=== PATIENT | female | born 1930 | race Caucasian/White ===

== ENCOUNTER 2017-07-31 16:19 | Observation (INO) | payer OTHER, BC ==
[~2017-07-31] VITALS: Ht 165.1 cm; Wt 51.6 kg
[~2017-07-31 16:19] MED LIST: ACETIC ACID 2% BOTH EARS; AMLODIPINE BESYL5 MG PO; ANTIVERT25 MG PO; APRESOLINE25 MG PO; ATROVENT 0.03%30 ML BOTH NARES; ATROVENT 0.06%15 ML BOTH NARES; CALCIUM 600 +1 EAC5 PO; CALCIUM PO; CARBAMAZEPINE200 MG PO; CARVEDILOL12.5 MG PO; CARVEDILOL6.25 MG PO; CEFTIN500 MG PO; CHILD ASPIRIN81 M1 PO; CIPRO500 MG PO; CLOPIDOGREL75 MG PO; COREG12.5 M1 PO; COREG25 MG PO; ELIQUIS5 MG PO; ENDOCET 5-3251 EACH PO; FLONASE16 G1 BOTH NARES; FLUCONAZOLE100 MG PO; GLIPIZIDE5 MG PO; HYDROCHLOROTHIA25 MG PO; IPRATROPIUM BRO15 ML BOTH NARES; ISOSORBIDE DINI30 MG PO; ISOSORBIDE MONO30 MG PO; KEFLEX500 MG PO; LEVOTHYROXINE100 MCG PO; LIPITOR40 MG PO; LIPITOR80 MG PO; LISINOPRIL10 MG PO; LYRICA50 MG PO; LYRICA75 MG PO; METFORMIN HCL500 MG PO; MOTRIN800 MG PO; Macrodantin PO; NAPROSYN375 MG PO; NITROGLYCERIN0.4 MG SL; NITROSTAT0.4 MG SL; NORVASC5 MG PO; OMEPRAZOLE40 M1 PO; PLAVIX75 MG PO; RANEXA500 MG PO; SIMVASTATIN80 MG PO; SYNTHROID100 MCG PO; SYNTHROID150 MCG PO; TYLENOL REGULA325 MG PO; ULTRAM50 MG PO; ZANTAC150 MG PO; ZESTRIL,PRINIVI20 MG PO; ZESTRIL10 MG PO; ZESTRIL40 MG PO; ZOCOR80 MG PO; ZOFRAN ODT4 MG PO; ZOFRAN4 MG PO; [UNRECOGNIZED DRUG - OTHER] PR
[2017-07-31 16:55] LABS: HEMATOCRIT 41.7 % (36.0-46.0); MCH 31.6 PG (29.0-34.0); MCHC 33.3 G/DL (30.0-36.0); MCV 94.8 FL (83-99); MEAN PLAT.VOLUME 10.7 uM^3 (9.5-12.4); PLATELET COUNT 149 K/uL (156-360); RBC DIS.WIDTH-SD 45.4 % (39-53); WHITE BLOOD COUNT 5.5 K/uL (4.1-10.2)
[2017-07-31 17:07] LABS: CHLORIDE 104 mEq/L (99-109); POTASSIUM 3.2 mEq/L (3.7-5.4); SODIUM 142 mEq/L (136-147)
[2017-07-31 17:08] LABS: GLUCOSE 257 mg/dL (70-99)
[2017-07-31 17:10] LABS: ANION GAP 11 MEQ/L (2-14)
[2017-07-31 17:12] LABS: GFR ESTIMATE (CALCULATED) > 59 mL/min/
[2017-07-31 17:13] LABS: UREA NITROGEN (BUN) 11 mg/dL (9-23)
[2017-07-31 17:16] LABS: TROP-I INTERPRETATION NEGATIVE; TROPONIN-I < 0.01 ng/mL (0.0-0.30)
[2017-07-31] MEDS ORDERED: ANTIVERT12.5 MG PO (20:12)
[2017-07-31] MEDS ORDERED: LIPITOR40 MG PO (20:12)
[2017-07-31] MEDS ORDERED: CELEXA10 MG PO (20:13)
[2017-07-31 20:56] VITALS: BP 170/76
[2017-07-31 21:34] LABS: INTER. NORMALIZED RATIO 1.1; PROTHROMBIN TIME 12.6 SEC (10.2-12.9)
[2017-07-31 21:37] LABS: PTT 25.7 SEC (25-37)
[2017-08-01 00:21] VITALS: BP 168/77
[2017-08-01 01:08] LABS: TROP-I INTERPRETATION NEGATIVE; TROPONIN-I < 0.01 ng/mL (0.0-0.30)
[2017-08-01 04:52] VITALS: BP 166/77
[2017-08-01 05:36] LABS: HEMATOCRIT 42.1 % (36.0-46.0); MCH 32.4 PG (29.0-34.0); MCV 95.5 FL (83-99); MEAN PLAT.VOLUME 11.3 uM^3 (9.5-12.4); PLATELET COUNT 126 K/uL (156-360); RBC DIS.WIDTH-CV 13.1 % (11.8-14.6); RBC DIS.WIDTH-SD 46.5 % (39-53); RED BLOOD COUNT 4.41 M/uL (3.80-5.20); WHITE BLOOD COUNT 4.2 K/uL (4.1-10.2)
[2017-08-01 06:03] LABS: ANION GAP 9 MEQ/L (2-14); CHLORIDE 105 MEQ/L (99-109); GFR ESTIMATE (CALCULATED) > 59 mL/min/; GLUCOSE 167 mg/dL (70-99); POTASSIUM 3.2 MEQ/L (3.7-5.4); SAMPLE HEMOLYSIS CHECK 0; SAMPLE ICTERIC CHECK 0; SAMPLE LIPEMIA CHECK 0; SODIUM 143 MEQ/L (136-147); UREA NITROGEN (BUN) 9 mg/dL (9-23)
[2017-08-01 06:04] LABS: TROP-I INTERPRETATION NEGATIVE; TROPONIN-I < 0.01 ng/mL (0.0-0.30)
[2017-08-01 08:00] VITALS: BP 169/78
[2017-08-01 08:16] LABS: MAGNESIUM 1.8 mg/dl (1.3-2.7)
[2017-08-01 12:28] VITALS: BP 168/81
[2017-08-01] MEDS ORDERED: AMLODIPINE BESYL5 MG PO (15:04)
[2017-08-01] MEDS ORDERED: METOPROLOL SUCC25 MG PO (15:17)
[2017-08-01 16:00] VITALS: BP 140/72
== END 2017-08-01 19:10 | disposition home or self-care (01) ==
LOC: EME 16:19 → EDOF 19:24 → ENRESERV 19:28 → 5WEST 20:40
PROVIDERS: Emergency Medicine; Hospitalist
DX: R07.9 Chest pain, unspecified (principal); I25.10 Atherosclerotic heart disease of native coronary artery without angina pectoris; I10 Essential (primary) hypertension; I25.2 Old myocardial infarction; Z95.5 Presence of coronary angioplasty implant and graft; R94.31 Abnormal electrocardiogram [ECG] [EKG]; Z91.14 Patient's other noncompliance with medication regimen; E78.5 Hyperlipidemia, unspecified; E03.9 Hypothyroidism, unspecified; Z86.711 Personal history of pulmonary embolism; Z87.891 Personal history of nicotine dependence; Z82.49 Family history of ischemic heart disease and other diseases of the circulatory system; Z84.1 Family history of disorders of kidney and ureter; Z90.49 Acquired absence of other specified parts of digestive tract; Z90.710 Acquired absence of both cervix and uterus; Z79.82 Long term (current) use of aspirin; Z85.828 Personal history of other malignant neoplasm of skin
CPT/HCPCS: 71010; 80048; 83735; 84484; 85027; 85379; 85610; 85730; 93005; 99281; 99284; G0378; J1644; J3475

== ENCOUNTER 2017-09-14 01:00 | Observation (INO) | payer OTHER, BC ==
[~2017-09-14] VITALS: Ht 152.4 cm; Wt 44.1 kg
[~2017-09-14 01:00] MED LIST changes: +ANTIVERT12.5 MG PO; +CELEXA10 MG PO; +METOPROLOL SUCC25 MG PO
[2017-09-14 01:37] LABS: EOSINOPHIL (%) 2.6 % (0-5); EOSINOPHIL COUNT 0.1 K/uL (0-0.3); HEMATOCRIT 40.6 % (36.0-46.0); IMMATURE GRANULOCYTE (%) 0.3 % (0.0-0.7); INSTRUMENT ABS NEUTROPHIL CT 1.9 K/uL; LYMPHOCYTE COUNT 1.5 K/uL (1.0-2.8); MCH 31.7 PG (29.0-34.0); MCHC 33.3 G/DL (30.0-36.0); MCV 95.3 FL (83-99); MEAN PLAT.VOLUME 10.9 uM^3 (9.5-12.4); MONOCYTE (%) 10.1 % (3-12); MONOCYTE COUNT 0.4 K/uL (0-0.8); NEUTROPHIL (%) 48.3 % (45-76); NEUTROPHIL COUNT 1.9 K/uL (1.8-6.4); PLATELET COUNT 143 K/uL (156-360); RBC DIS.WIDTH-SD 45.7 % (39-53); RED BLOOD COUNT 4.26 M/uL (3.80-5.20); WHITE BLOOD COUNT 3.9 K/uL (4.1-10.2)
[2017-09-14 01:43] LABS: INTER. NORMALIZED RATIO 1.2; PROTHROMBIN TIME 12.7 SEC (10.2-12.9)
[2017-09-14 01:45] LABS: CHLORIDE 105 mEq/L (99-109); POTASSIUM 3.5 mEq/L (3.7-5.4); SODIUM 141 mEq/L (136-147)
[2017-09-14 01:46] LABS: MAGNESIUM 1.2 mg/dL (1.3-2.7); PTT 26.5 SEC (25-37)
[2017-09-14 01:47] LABS: GLUCOSE 137 mg/dL (70-99)
[2017-09-14 01:48] LABS: ANION GAP 10 MEQ/L (2-14)
[2017-09-14 01:51] LABS: GFR ESTIMATE (CALCULATED) > 59 mL/min/
[2017-09-14 01:52] LABS: UREA NITROGEN (BUN) 9 mg/dL (9-23)
[2017-09-14 01:58] LABS: TROP-I INTERPRETATION NEGATIVE; TROPONIN-I < 0.01 ng/mL (0.0-0.30)
[2017-09-14 05:02] VITALS: BP 168/80
[2017-09-14 08:25] LABS: HEMATOCRIT 41.6 % (36.0-46.0); MCHC 33.4 G/DL (30.0-36.0); MCV 95.9 FL (83-99); MEAN PLAT.VOLUME 10.9 uM^3 (9.5-12.4); PLATELET COUNT 127 K/uL (156-360); RBC DIS.WIDTH-CV 12.9 % (11.8-14.6); RBC DIS.WIDTH-SD 45.9 % (39-53); RED BLOOD COUNT 4.34 M/uL (3.80-5.20); WHITE BLOOD COUNT 3.6 K/uL (4.1-10.2)
[2017-09-14 08:31] VITALS: BP 143/66
[2017-09-14 08:46] LABS: TROP-I INTERPRETATION NEGATIVE; TROPONIN-I 0.03 ng/mL (0.0-0.30)
[2017-09-14 08:55] LABS: ANION GAP 6 MEQ/L (2-14); CHLORIDE 107 MEQ/L (99-109); GFR ESTIMATE (CALCULATED) > 59 mL/min/; GLUCOSE 144 mg/dL (70-99); POTASSIUM 3.9 MEQ/L (3.7-5.4); SAMPLE HEMOLYSIS CHECK 0; SAMPLE ICTERIC CHECK 0; SAMPLE LIPEMIA CHECK 0; SODIUM 144 MEQ/L (136-147); UREA NITROGEN (BUN) 8 mg/dL (9-23)
[2017-09-14 12:00] VITALS: BP 147/73
[2017-09-14 14:51] LABS: TROP-I INTERPRETATION NEGATIVE; TROPONIN-I 0.02 ng/mL (0.0-0.30)
[2017-09-14 16:40] VITALS: BP 137/84
== END 2017-09-14 19:13 | disposition home health service (06) ==
LOC: EME 01:00 → EDOF 03:37 → ENRESERV 03:38 → 5WEST 04:28
PROVIDERS: Emergency Medicine; Physician Assistant
DX: R07.9 Chest pain, unspecified (principal); E03.9 Hypothyroidism, unspecified; I10 Essential (primary) hypertension; E87.6 Hypokalemia; R62.7 Adult failure to thrive; R63.4 Abnormal weight loss; Z68.1 Body mass index [BMI] 19.9 or less, adult; I25.10 Atherosclerotic heart disease of native coronary artery without angina pectoris; I25.2 Old myocardial infarction; Z95.5 Presence of coronary angioplasty implant and graft; E78.5 Hyperlipidemia, unspecified; F32.9 Major depressive disorder, single episode, unspecified; G50.0 Trigeminal neuralgia; E11.9 Type 2 diabetes mellitus without complications; Z79.84 Long term (current) use of oral hypoglycemic drugs; Z79.899 Other long term (current) drug therapy; Z79.82 Long term (current) use of aspirin; Z63.6 Dependent relative needing care at home; Z91.14 Patient's other noncompliance with medication regimen; Z86.711 Personal history of pulmonary embolism; Z87.891 Personal history of nicotine dependence; Z90.49 Acquired absence of other specified parts of digestive tract; Z90.710 Acquired absence of both cervix and uterus; Z82.49 Family history of ischemic heart disease and other diseases of the circulatory system
CPT/HCPCS: 71010; 80048; 80048 91; 83735; 84443; 84484; 85025; 85027; 85610; 85730; 93005; 99281; 99285; G0378; J7040

== ENCOUNTER 2018-06-06 13:08 | Inpatient (IN) | payer OTHER, BC ==
[~2018-06-06] VITALS: Ht 157.5 cm; Wt 45.3 kg
[2018-06-06 13:48] LABS: HEMATOCRIT 46.1 % (36.0-46.0); HEMOGLOBIN 15.6 G/DL (11.9-15.5); MCH 32.8 PG (29.0-34.0); MCHC 33.8 G/DL (30.0-36.0); MCV 96.8 FL (83-99); PLATELET COUNT 157 K/uL (156-360); RBC DIS.WIDTH-CV 12.9 % (11.8-14.6); RBC DIS.WIDTH-SD 46.5 % (39-53); RED BLOOD COUNT 4.76 M/uL (3.80-5.20); WHITE BLOOD COUNT 8.5 K/uL (4.1-10.2)
[2018-06-06 14:00] LABS: CHLORIDE 99 mEq/L (99-109); POTASSIUM 4.3 mEq/L (3.7-5.4); SODIUM 137 mEq/L (136-147)
[2018-06-06 14:02] LABS: GLUCOSE 208 mg/dL (70-99)
[2018-06-06 14:06] LABS: CREATININE 0.9 mg/dL (0.6-1.3); GFR ESTIMATE (CALCULATED) > 59 mL/min/
[2018-06-06 14:07] LABS: UREA NITROGEN (BUN) 11 mg/dL (9-23)
[2018-06-06] MEDS ORDERED: ATORVASTATIN CA40 MG PO (18:29)
[2018-06-06] MEDS ORDERED: CITALOPRAM HBR20 MG PO (18:29)
[2018-06-06] MEDS ORDERED: RANITIDINE HCL150 MG PO (18:30)
[2018-06-06] MEDS ORDERED: METFORMIN HCL500 MG PO (18:30)
[2018-06-06] MEDS ORDERED: CITALOPRAM HBR10 MG PO (18:31)
[2018-06-06] MEDS ORDERED: TRAMADOL HCL50 MG PO (18:31)
[2018-06-06 19:53] VITALS: BP 151/70
[2018-06-06 22:44] VITALS: BP 130/63
[2018-06-07 05:50] VITALS: BP 131/79
[2018-06-07 06:35] LABS: BASOPHIL (%) 0.2 % (0-1); EOSINOPHIL (%) 0.8 % (0-5); HEMATOCRIT 40.2 % (36.0-46.0); HEMOGLOBIN 13.4 G/DL (11.9-15.5); IMMATURE GRANULOCYTE (%) 0.2 % (0.0-0.7); LYMPHOCYTE (%) 28.7 % (15-42); LYMPHOCYTE COUNT 1.4 K/uL (1.0-2.8); MCH 32.3 PG (29.0-34.0); MCHC 33.3 G/DL (30.0-36.0); MCV 96.9 FL (83-99); MONOCYTE COUNT 0.6 K/uL (0-0.8); NEUTROPHIL (%) 59.1 % (45-76); NEUTROPHIL COUNT 2.9 K/uL (1.8-6.4); PLATELET COUNT 131 K/uL (156-360); RBC DIS.WIDTH-CV 12.9 % (11.8-14.6); RBC DIS.WIDTH-SD 45.8 % (39-53); RED BLOOD COUNT 4.15 M/uL (3.80-5.20)
[2018-06-07 06:52] LABS: CHLORIDE 107 MEQ/L (99-109); CREATININE 0.6 MG/DL (0.6-1.3); GFR ESTIMATE (CALCULATED) > 59 mL/min/; GLUCOSE 144 mg/dL (70-99); POTASSIUM 3.5 MEQ/L (3.7-5.4); SODIUM 142 MEQ/L (136-147); UREA NITROGEN (BUN) 8 mg/dL (9-23)
[2018-06-07 08:00] VITALS: BP 194/90
[2018-06-07 15:13] VITALS: BP 142/63
[2018-06-07 22:46] VITALS: BP 155/70
[2018-06-08 06:16] LABS: CHLORIDE 106 MEQ/L (99-109); CREATININE 0.6 MG/DL (0.6-1.3); GFR ESTIMATE (CALCULATED) > 59 mL/min/; GLUCOSE 189 mg/dL (70-99); POTASSIUM 3.6 MEQ/L (3.7-5.4); SODIUM 141 MEQ/L (136-147); UREA NITROGEN (BUN) 9 mg/dL (9-23)
[2018-06-08 08:09] VITALS: BP 155/73
[2018-06-08 16:54] VITALS: BP 130/63
[2018-06-08 23:33] VITALS: BP 150/69
[2018-06-09 06:16] LABS: CHLORIDE 109 MEQ/L (99-109); CREATININE 0.5 MG/DL (0.6-1.3); GFR ESTIMATE (CALCULATED) > 59 mL/min/; GLUCOSE 174 mg/dL (70-99); POTASSIUM 3.8 MEQ/L (3.7-5.4); SODIUM 143 MEQ/L (136-147); UREA NITROGEN (BUN) 8 mg/dL (9-23)
[2018-06-09 06:55] VITALS: BP 166/88
[2018-06-09] MEDS ORDERED: AZITHROMYCIN250 MG1 PO (14:09)
[2018-06-09] MEDS ORDERED: CEFDINIR300 MG PO (14:10)
[2018-06-09 15:10] VITALS: BP 128/64
== END 2018-06-09 15:45 | disposition home health service (06) | DRG 178 ==
LOC: EME 13:08 → EDOF 17:30 → 5EAST 17:30 → ENRESERV 17:44 → 5EAST 19:48
PROVIDERS: Internal Medicine; Physician Assistant
DX: J69.0 Pneumonitis due to inhalation of food and vomit (principal); J15.9 Unspecified bacterial pneumonia; I25.10 Atherosclerotic heart disease of native coronary artery without angina pectoris; E87.6 Hypokalemia; I10 Essential (primary) hypertension; E78.5 Hyperlipidemia, unspecified; E03.9 Hypothyroidism, unspecified; E11.9 Type 2 diabetes mellitus without complications; R63.0 Anorexia; Z68.1 Body mass index [BMI] 19.9 or less, adult; R29.6 Repeated falls; I25.2 Old myocardial infarction; F32.9 Major depressive disorder, single episode, unspecified; Z87.81 Personal history of (healed) traumatic fracture; Z85.828 Personal history of other malignant neoplasm of skin; Z86.711 Personal history of pulmonary embolism; Z87.891 Personal history of nicotine dependence; Z95.5 Presence of coronary angioplasty implant and graft; Z90.710 Acquired absence of both cervix and uterus; Z60.2 Problems related to living alone; Z79.84 Long term (current) use of oral hypoglycemic drugs
CPT/HCPCS: 71046; 71250; 80048; 82948; 83605; 85025; 85027; 87040; 92610 GN; 94640; 99281; 99285; J0295; J0456; J0696; J1644; J1815; J7030; J7050